=== PATIENT | female | born 1980 | race Caucasian/White ===

== ENCOUNTER → 2021-02-01 | Outpatient (CLI) | payer OTHER | LOC: M PAIN 10:00 | PROVIDERS: ATTEND Anesthesiology | DX: E11.42 Type 2 diabetes mellitus with diabetic polyneuropathy (principal); R51.9 Headache, unspecified; D64.9 Anemia, unspecified; Z87.891 Personal history of nicotine dependence; Z79.82 Long term (current) use of aspirin; Z79.899 Other long term (current) drug therapy ==

== ENCOUNTER → 2021-04-21 | Outpatient (CLI) | payer MEDICARE, OTHER | LOC: M PAIN 11:45 | PROVIDERS: ATTEND Anesthesiology | DX: E11.42 Type 2 diabetes mellitus with diabetic polyneuropathy (principal); G89.29 Other chronic pain; D50.9 Iron deficiency anemia, unspecified; Z87.891 Personal history of nicotine dependence; E66.01 Morbid (severe) obesity due to excess calories; Z68.41 Body mass index [BMI] 40.0-44.9, adult; Z79.4 Long term (current) use of insulin; Z79.82 Long term (current) use of aspirin; Z79.899 Other long term (current) drug therapy ==

== ENCOUNTER → 2021-08-02 | Outpatient (CLI) | payer MEDICARE, OTHER | LOC: M PAIN 13:45 | PROVIDERS: ATTEND Anesthesiology | DX: E11.42 Type 2 diabetes mellitus with diabetic polyneuropathy (principal); R51.9 Headache, unspecified; D64.9 Anemia, unspecified; Z87.891 Personal history of nicotine dependence; Z79.82 Long term (current) use of aspirin; Z79.899 Other long term (current) drug therapy ==

== ENCOUNTER → 2022-07-17 | Outpatient (CLI) | payer MEDICARE, OTHER | LOC: M PAIN 11:00 | PROVIDERS: ATTEND Nurse Practitioner Family | DX: E10.42 Type 1 diabetes mellitus with diabetic polyneuropathy (principal); Z79.82 Long term (current) use of aspirin; Z79.899 Other long term (current) drug therapy; G89.29 Other chronic pain; Z87.891 Personal history of nicotine dependence ==

== ENCOUNTER → 2022-10-16 | Outpatient (CLI) | payer MEDICARE, OTHER | LOC: M PAIN 14:00 | PROVIDERS: ATTEND Nurse Practitioner Family | DX: E10.40 Type 1 diabetes mellitus with diabetic neuropathy, unspecified (principal); D64.9 Anemia, unspecified; Z87.891 Personal history of nicotine dependence; Z79.82 Long term (current) use of aspirin; Z79.4 Long term (current) use of insulin ==

== ENCOUNTER → 2023-01-18 | Outpatient (CLI) | payer MEDICARE, OTHER | LOC: M PAIN 14:00 | PROVIDERS: ATTEND Nurse Practitioner Family | DX: E10.40 Type 1 diabetes mellitus with diabetic neuropathy, unspecified (principal); R51.9 Headache, unspecified; D64.9 Anemia, unspecified; K02.9 Dental caries, unspecified; Z79.82 Long term (current) use of aspirin; Z79.899 Other long term (current) drug therapy; Z79.4 Long term (current) use of insulin ==

== ENCOUNTER → 2023-05-06 | Outpatient (CLI) | payer MEDICARE, OTHER | LOC: M PAIN 15:30 | PROVIDERS: ATTEND Nurse Practitioner Family | DX: E10.40 Type 1 diabetes mellitus with diabetic neuropathy, unspecified (principal); R51.9 Headache, unspecified; D64.9 Anemia, unspecified; Z87.891 Personal history of nicotine dependence; Z79.82 Long term (current) use of aspirin; Z79.899 Other long term (current) drug therapy ==

== ENCOUNTER → 2023-08-20 | Outpatient (CLI) | payer MEDICARE, OTHER | LOC: M PAIN 16:00 | PROVIDERS: ATTEND Nurse Practitioner Family | DX: E10.40 Type 1 diabetes mellitus with diabetic neuropathy, unspecified (principal); G89.29 Other chronic pain; Z87.891 Personal history of nicotine dependence; Z79.899 Other long term (current) drug therapy; Z79.82 Long term (current) use of aspirin ==

== ENCOUNTER → 2023-11-20 | Outpatient (CLI) | payer OTHER, MEDICARE | LOC: M PAIN 13:30 | PROVIDERS: ATTEND Anesthesiology | DX: E10.42 Type 1 diabetes mellitus with diabetic polyneuropathy (principal); D64.9 Anemia, unspecified; R51.9 Headache, unspecified; N80.9 Endometriosis, unspecified; Z87.891 Personal history of nicotine dependence; Z79.82 Long term (current) use of aspirin; Z79.899 Other long term (current) drug therapy ==

== ENCOUNTER → 2024-07-06 | Outpatient (CLI) | payer MEDICARE, OTHER | LOC: M PAIN 17:00 | PROVIDERS: ATTEND Nurse Practitioner Family | DX: E10.40 Type 1 diabetes mellitus with diabetic neuropathy, unspecified (principal); G89.29 Other chronic pain; Z87.891 Personal history of nicotine dependence; Z79.82 Long term (current) use of aspirin; Z79.899 Other long term (current) drug therapy ==